=== PATIENT | female | born 1950 | race Caucasian/White ===

== ENCOUNTER 2024-05-05 13:43 | Outpatient (RCR) | payer MEDICARE, OTHER, SELFPAY ==
[2024-05-05] MEDS: RECLAST 100 IV (14:10)
[2024-05-05 14:31] VITALS: BP 99/48
[2024-05-05 15:00] VITALS: BP 93/40
== END 2024-05-06 08:59 | disposition home or self-care (01) ==
LOC: OID 13:43
PROVIDERS: ATTENDING PHYSICIAN Nurse Practitioner Primary Care; FAMILY PHYSICIAN Internal Medicine Geriatric Medicine
DX: M81.0 Age-related osteoporosis without current pathological fracture (principal)
CPT/HCPCS: 96365; J3489

== ENCOUNTER → 2024-05-19 15:44 | Outpatient (REF) | payer MEDICARE, OTHER, SELFPAY | LOC: REG 15:44 | PROVIDERS: ATTENDING PHYSICIAN Internal Medicine; FAMILY PHYSICIAN Internal Medicine Geriatric Medicine | DX: K52.9 Noninfective gastroenteritis and colitis, unspecified (principal) | CPT/HCPCS: 87324; 87449 ==

== ENCOUNTER → 2024-06-23 13:49 | Outpatient (REF) | payer MEDICARE, OTHER, SELFPAY | LOC: RAD 13:49 | PROVIDERS: ATTENDING PHYSICIAN Nurse Practitioner Primary Care | DX: R06.09 Other forms of dyspnea (principal); Z87.891 Personal history of nicotine dependence; R91.1 Solitary pulmonary nodule; R05.2 Subacute cough | CPT/HCPCS: 71250 ==

== ENCOUNTER → 2024-09-03 11:06 | Outpatient (REF) | payer MEDICARE, OTHER, SELFPAY | LOC: WDC 11:06 | PROVIDERS: ATTENDING PHYSICIAN Nurse Practitioner Primary Care | DX: Z12.31 Encounter for screening mammogram for malignant neoplasm of breast (principal) | CPT/HCPCS: 77063; 77067 ==

== ENCOUNTER 2025-04-16 14:58 | Emergency (ER) | payer MEDICARE, OTHER, SELFPAY ==
[2025-04-16 14:59] VITALS: BP 117/65
[2025-04-16 15:14] LABS: % Basophils 0.2 % (0-2); % Immature Granulocytes 0.4 % (0-0.5); % Lymphocytes 4.8 % (20.5-51.1); % Monocytes 5.6 % (1.7-9.3); Absolute Immature Granulocytes 0.1 10^3/uL (0-0.05); Absolute Lymphocytes 0.6 10^3/uL (1.2-3.4); Absolute Monocytes 0.7 10^3/uL (0.1-0.6); Absolute Neutrophils 11.5 10^3/uL (1.4-6.5); Hematocrit 38.8 % (37.0-47.0); Mean Corp Hgb Conc. 33.5 g/dL (33.0-37.0); Mean Corpuscular Hgb 29.3 pg (27.0-31.0); Mean Corpuscular Volume 87.4 fL (81.0-99.0); Mean Platelet Volume 9.6 fL (7.4-10.4); Nucleated Red Blood Cells % 0 %; Platelet Count 229 10^3/uL (130-400); Red Blood Cell Count 4.44 10^6/uL (4.20-5.40); Red Cell Dist. Width 13.6 % (11.5-14.5); White Blood Cell Count 12.9 10^3/uL (4.8-10.8)
[2025-04-16 15:30] LABS: ALT (SGPT) 25 U/L (0-35); AST (SGOT) 38 U/L (14-36); Albumin 3.9 g/dl (3.5-5.0); Alkaline Phosphatase 133 U/L (38-126); Blood Urea Nitrogen 10 mg/dl (7-17); Calcium 8.5 mg/dl (8.4-10.2); Carbon Dioxide 25 mmol/L (22-30); Chloride 101 mmol/L (98-107); Glucose 103 mg/dl (70-99); Lipase 541 U/L (23-300); Potassium 3.9 mmol/L (3.5-5.1); Sodium 135 mmol/L (135-145); Total Bilirubin 0.6 mg/dl (0.2-1.3); Total Protein 6.7 g/dl (6.3-8.2); eGFR > 60.00
[2025-04-16 19:05] VITALS: BMI 30.4
--- NOTE | 2025-04-16 19:16 | ED.GENMED ---
History of Present Illness
General
Chief Complaint: Abdominal Pain
Source: patient and spouse
Exam Limitations: none
Time Seen by Provider: 04/16/25 19:04
Nursing documentation reviewed up to this point in time: agreed with
History of Present Illness
History of Present Illness:
The patient is a 75-year-old female with a past medical history of pancreatic cyst with a ' mini Whipple procedure in the past' and a cholecystectomy, who reports that she was recently diagnosed with a pancreatic mass at a hospital in [place] this past
Saturday which was 3 days ago. Patient reports that 4 days ago she noticed left-sided abdominal pain. She reports she took a trip to [place] to visit a friend and while there experienced increased left-sided abdominal pain, prompting her to go to
the emergency department at the hospital in [place]. While there, she had blood work done and a CAT scan of her abdomen and pelvis done. Patient reports that she was told her lipase level was in the 240 range and that her CAT scan showed a mass of
her pancreas. Patient reports she has an appointment to have a biopsy done of this pancreatic mass with Dr. Hernandez on April 26. The patient reports that she has had intermittent moderate discomfort in her left abdomen, so decided to come to [facility]
emergency department to make sure she is okay. Patient denies any vomiting or fever. Patient reports she has been able to maintain a bland diet without any significant pain, nausea or vomiting. Patient reports that she is not sure if her biopsy
could be moved up.
Past History
Past History
ED Past Medical History: Other (Ulcerative colitis) and Other (Ulcerative colitis, Crohn's disease, partial hysterectomy, diverticular disease, glaucoma, known pancreatic mass, pancreatic cyst)
ED Past Surgical History: Cholecystectomy, Gynecological and Other (' Mini Whipple procedure')
Social History
Tobacco: Non-smoker
Alcohol: None
Drug: None
Personal:
Living: with family
Employment: Other
Review of Systems
Review of Systems
Allergies reviewed?: Yes
All Other Systems: ROS reviewed and negative except as documented in HPI and ROS
Constitutional: Reports no symptoms
EENT: Reports no symptoms
Respiratory: Reports no symptoms
Cardiac: Reports no symptoms
ABD/GI: Reports abdominal pain
: Reports no symptoms
Musculoskeletal: Reports no symptoms
Skin: Reports no symptoms
Neurological: Reports no symptoms
Endocrine: Reports no symptoms
Hematologic/Lymphatic: Reports no symptoms
Psychiatric: Reports no symptoms
Phy Exam
Physical Exam
Physical Exam:
Physical Exam
General: no apparent distress, not acutely ill. Patient appears very well and comfortable, smiling and conversational
Neck: supple. no meningeal signs. normal psoterior pharynx
Heart: s1/s2 regular rate and rhythm, no murmur. equal radial pulses.
Lungs: no acute respiratory distress. clear bilaterally
Abdomen: normal bowel sounds. Nondistended. No rebound or guarding. No pulsatile mass. Very mild to no tenderness of left mid abdomen
Neuro: alert and oriented. no focal neurological deficits
Skin: no rash
Psychiatric: well kept. interactive and cooperative
Extremities: no edema. no calf tenderness. negative homans. good distal pulses
Course
Orders/Labs/Results
Orders:
Orders
04/16/25 15:06
Complete Blood Count/With Diff Urgent
Comprehensive Metabolic Panel Urgent
Lipase Urgent
Abnormal Lab Results
04/16/25
15:06
WBC 12.9 H 10^3/uL
(4.8-10.8)
Abs Immat Gran (auto) 0.1 H 10^3/uL
(0-0.05)
Absolute Neuts (auto) 11.5 H 10^3/uL
(1.4-6.5)
Absolute Lymphs (auto) 0.6 L 10^3/uL
(1.2-3.4)
Absolute Monos (auto) 0.7 H 10^3/uL
(0.1-0.6)
Neutrophils % 89.0 H %
(42.2-75.2)
Lymphocytes % 4.8 L %
(20.5-51.1)
Creatinine 0.5 L mg/dL
(0.6-1.0)
Glucose 103 H mg/dl
(70-99)
AST 38 H U/L
(14-36)
Alkaline Phosphatase 133 H U/L
(38-126)
Lipase 541 H U/L
(23-300)
04/16/25 15:06
04/16/25 15:06
Vital Signs
Initial and Last Documented VS:
Initial Vital Signs
Temp Pulse Resp BP Pulse Ox
97.8 F 79 16 117/65 98
04/16/25 14:59 04/16/25 14:59 04/16/25 14:59 04/16/25 14:59 04/16/25 14:59
Last Documented Vital Signs
Temp Pulse Resp BP Pulse Ox
97.8 F 79 16 117/65 98
04/16/25 14:59 04/16/25 14:59 04/16/25 14:59 04/16/25 14:59 04/16/25 14:59
MDM/Problems Addressed
Differential Diagnosis Includes:
Acute pancreatitis, biliary stone, pancreatic cancer, metastatic cancer
MDM/Problems Addressed:
Patient presents with acute left-sided abdominal pain with recent CAT scan showing pancreatic mass
Chronic conditions affecting care:
Inflammatory bowel disease
Acute Exacerbation and/or Progression of Chronic Illness:
Patient may have acute exacerbation of inflammatory bowel disease
*Pulse Oximetry
Patient hypoxic: no
*EKG
Interpreted by ED Provider?: NA
*Conservation Worker Interpretation
Rate: Conservation Worker- N/A
*Critical Care Note
Total Time (30-74mins, 75-104mins- exclusive of procedures): Not Applicable
Data Reviewed
Review of Other/Old Records Reveals: Testing (Colonoscopy done in September 2023 shows no concerning signs for colon cancer)
Source: patient and spouse
Patient Management
Social determinants of health affecting care: Living situation and Strong social support
Discussion with other providers: Other (Case discussed with Dr. Trujillo from GI)
Escalation/DeEscalation of care consider admission/obs:
Patient appears extremely well and comfortable. Her pain is extremely mild and nearly gone. She has had no vomiting, chills or fever. She is able to maintain a bland diet without nausea and vomiting. Case discussed with GI on-call who agrees
patient can go home and return with any fever, worsening pain or vomiting. Patient has follow-up on April [address] Trujillo said that she will discuss the case with Dr. Hernandez and that the patient should call GI office on Saturday with an
update of her symptoms.
ED Attending Note
-
Portions of this chart may have been created with voice recognition software.� Occasional wrong word or��sound alike� substitutions may have occurred due to the inherent limitations of voice recognition software.
Discharge Plan
Departure
Patient Disposition: Home (Routine Discharge)
Date of Disposition: 04/16/25
Time of Disposition: 19:35
Patient with high blood pressure during this ER visit?: No
Condition: Good
Covid-19: Not Applicable
Discharge Problem:
Acute pancreatitis
Instructions: [place] diet, Pancreatitis - Discharge instructions
Prescriptions:
No Action
latanoprost 1 DROP drops
1 drp BOTH EYES HS
Creon 1 EACH capsule,delayed release(DR/EC)
1 ea PO PRN PRN (Reason: with meals)
prednisone 10 MG tablet
7.5 mg PO DAILY
rosuvastatin [Crestor] 20 mg Tablet
20 mg PO DAILY
cholecalciferol (vitamin D3) [Vitamin D3] 25 mcg (1,000 unit) Tablet
25 mcg PO DAILY
acetaminophen [Tylenol Arthritis Pain] 650 mg Tablet Extended Release
1,300 mg PO Q12H PRN (Reason: arthritis in knees)
furosemide [Lasix] 20 mg tablet
20 mg PO DAILY Qty: 90 5RF
ferrous sulfate [Iron (ferrous sulfate)] 325 mg (65 mg iron) Tablet
325 mg PO DAILY
Entyvio 300 mg Recon Soln
300 mg IV Q8W
Referrals:
Flakita Olivo CRNP [Family Provider, Internal Medicine]
Autumn Gutierrez DO [Active, Gastroenterology]
Activity Restrictions/Additional Instructions:
Please call Dr. Gutierrez's office this Saturday to let her know how you are feeling. Please return with any fever or vomiting.
Interventions
Interventions:
*Risk Screen - Suicide Last Done: 04/16/25 15:03
*Neglect/Abuse Screening Last Done: 04/16/25 15:03
Discharge Date and Time
Print Language: PORTUGUESE
== END 2025-04-16 19:42 | disposition home or self-care (01) ==
LOC: EMR 14:58
PROVIDERS: Emergency Medicine; EMERGENCY PHYSICIAN Emergency Medicine; FAMILY PHYSICIAN Nurse Practitioner Primary Care
DX: K85.90 Acute pancreatitis without necrosis or infection, unspecified (principal)
CPT/HCPCS: 99283; 80053; 83690; 85025

== ENCOUNTER → 2025-05-25 15:03 | Outpatient (REF) | payer MEDICARE, OTHER, SELFPAY | LOC: RCS 15:03 | PROVIDERS: ATTENDING PHYSICIAN Internal Medicine Cardiovascular Disease; FAMILY PHYSICIAN Nurse Practitioner Primary Care | DX: I47.19 Other supraventricular tachycardia (principal) | CPT/HCPCS: 93306 ==

== ENCOUNTER 2025-06-03 06:20 | Day surgery (SDC) | payer MEDICARE, OTHER, SELFPAY ==
[2025-06-03 11:10] VITALS: BMI 28.4
[2025-06-03 11:15] VITALS: BP 100/53
[2025-06-03 11:25] VITALS: BMI 28.4
[2025-06-03 15:41] VITALS: BP 91/57
[2025-06-03 15:45] VITALS: BP 91/50
[2025-06-03 16:00] VITALS: BP 80/54
[2025-06-03 16:15] VITALS: BP 94/60
[2025-06-03 16:30] VITALS: BP 90/50
== END 2025-06-03 16:45 | disposition home or self-care (01) ==
LOC: GI 06:20
PROVIDERS: ATTENDING PHYSICIAN Internal Medicine Gastroenterology
DX: Z98.0 Intestinal bypass and anastomosis status (principal); K85.80 Other acute pancreatitis without necrosis or infection; K86.89 Other specified diseases of pancreas; K83.8 Other specified diseases of biliary tract
CPT/HCPCS: 43260; 43236; 74330; C1769

== ENCOUNTER → 2025-06-04 12:03 | Outpatient (REF) | payer MEDICARE, OTHER, SELFPAY | LOC: RAD 12:03 | PROVIDERS: ATTENDING PHYSICIAN Nurse Practitioner Primary Care | DX: Z87.891 Personal history of nicotine dependence (principal); R91.1 Solitary pulmonary nodule | CPT/HCPCS: 71260; Q9967 ==

== ENCOUNTER 2025-06-24 06:31 | Day surgery (SDC) | payer MEDICARE, OTHER, SELFPAY | END 2025-06-24 10:29 | disposition home or self-care (01) | LOC: GI 06:31 | PROVIDERS: ATTENDING PHYSICIAN Internal Medicine | DX: Z12.11 Encounter for screening for malignant neoplasm of colon (principal); K51.00 Ulcerative (chronic) pancolitis without complications; K57.30 Diverticulosis of large intestine without perforation or abscess without bleeding; K62.89 Other specified diseases of anus and rectum | CPT/HCPCS: 45380; 88305 ==

== ENCOUNTER → 2025-09-07 11:16 | Outpatient (REF) | payer MEDICARE, SELFPAY | LOC: WDC 11:16 | PROVIDERS: ATTENDING PHYSICIAN Nurse Practitioner Primary Care | DX: Z12.31 Encounter for screening mammogram for malignant neoplasm of breast (principal) | CPT/HCPCS: 77063; 77067 ==

== ENCOUNTER 2025-09-22 09:58 | Outpatient (RCR) | payer MEDICARE, SELFPAY ==
[2025-09-22 10:06] VITALS: BP 107/60
[2025-09-22] MEDS: RECLAST 100 IV (10:24)
[2025-09-22 11:20] VITALS: BP 93/55
== END 2025-09-23 10:16 | disposition home or self-care (01) ==
LOC: OID 09:58
PROVIDERS: ATTENDING PHYSICIAN Nurse Practitioner Primary Care
DX: M81.0 Age-related osteoporosis without current pathological fracture (principal)
CPT/HCPCS: 96365; J3489

== ENCOUNTER → 2025-10-06 09:39 | Outpatient (REF) | payer MEDICARE, OTHER, SELFPAY | LOC: EMG 09:39 | PROVIDERS: ATTENDING PHYSICIAN Orthopaedic Surgery Hand Surgery; FAMILY PHYSICIAN Nurse Practitioner Primary Care | DX: R20.0 Anesthesia of skin (principal); M79.642 Pain in left hand; M79.641 Pain in right hand; G56.03 Carpal tunnel syndrome, bilateral upper limbs | CPT/HCPCS: 95886; 95911 ==

== ENCOUNTER → 2025-11-17 15:13 | Outpatient (REF) | payer MEDICARE, OTHER, SELFPAY | LOC: PAVMRI 15:13 | PROVIDERS: ATTENDING PHYSICIAN Internal Medicine Gastroenterology; PRIMARYCARE PHYSICIAN Nurse Practitioner Primary Care | DX: D49.0 Neoplasm of unspecified behavior of digestive system (principal) | CPT/HCPCS: 74183; A9575 ==